=== PATIENT | female | born 1995 | race Caucasian/White ===

== ENCOUNTER 2016-10-26 06:08 | Emergency (ER) | payer OTHER ==
[~2016-10-26] VITALS: Ht 167.6 cm; Wt 104.5 kg
[2016-10-26 06:11] VITALS: BP 127/74; PULSE 78; RESP 16; O2SAT 98
[2016-10-26] MEDS ORDERED: 0.9% Sodium Chloride 1,000 ML IV ONE (07:06)
[2016-10-26] MEDS ORDERED: Promethazine Inj 25 MG in 0.9% Sodium Chloride-Pha MIX 100 ML IV ONE (07:10)
--- NOTE | 2016-10-26 07:26 | ED.REPORT ---
HPI-Abd Pain F Under 38 Date of Service October 26, 2016 ED Provider: Gorge Gipson DO The pt is a healthy 21 y/o female presenting to the ED complaining of nausea and vomiting onset 6 hours ago. She was drinking gin and a "Monster" last night which she suspects caused the vomiting. The other family members that went out to eat with her last night are feeling mildly nauseous with loose stools today. She also reports mild abdominal pain due to the vomiting. She has not taken any medicine to help. Nursing Notes Stated Complaint: VOMITING,SHAKY,FEELING NUMB,POSS FOOD POISONING Chief Complaint: Female Abdominal Pain Nursing Notes Reviewed: Yes Allergies: Uncoded Allergies: PENICILLIN (Allergy, Severe, ANAFLACTIC SHOCK AT 1 YRS OLD, 10/26/16) Scheduled PRN Ondansetron ODT (Zofran ODT) 4 Mg Tablet 4 MG PO Q4H PRN PRN For Nausea General Time Seen by MD: 06:40 Chief Complaint Vomiting moderate Hx Obtained From: Patient Arrived By: Walk-in Sudden in Onset?: Yes Onset Occurred: 5 - 8 hours ago Symptom Duration: Intermittent Location: : Diffuse Quality: Painful Severity: Current: Mild Severity: Maximum: Mild Recent Healthcare: No recent doctor visit, No recent hospitalization Past Medical History Past Medical History None reported Past Surgical History None reported Smoking History Unknown if Ever Smoker Social History Alcohol Use: "Social" Other Social History: Good social support Ambulatory Status Independent Review of Systems Constitutional: Denies: Fever GI: Reports: Abdominal pain, Nausea, Vomiting Complete sys rev & neg: except as marked. Physical Exam Initial Vital Signs Vital Signs (First) Date Time Temp Pulse Resp B/P Pulse Ox O2 Delivery O2 Flow Rate FiO2 10/26/16 06:11 36.4 78 16 127/74 98 Room Air Initial VS: Reviewed, Vital signs normal Head / Eyes: Atraumatic, Normocephalic, PERRL ENT: Mucous membranes moist, Conjunctiva normal, No scleral icterus Neck: Supple, Non-tender, Full range of motion Extremities: Vascular intact, Neuro intact, No swelling, No tenderness Skin: Warm, Dry, No cyanosis Neurologic: Alert, Oriented, Nonfocal Psychiatric: Mood/affect normal, Behavior normal, Normal thought content General/Constitutional: Awake, Alert Distress / Hydration: Positive: Distress mild Appearance / Presentation: Positive: Obese Respiratory / Chest: Breath sounds NL, Breath sounds = bilat, No respiratory distress, No rales, No rhonchi, No wheezing Cardiovascular: Heart rate NL, Regular rhythm, Heart sounds NL, Peripheral circulation NL Abdomen: Soft, Non-tender, McBurney's non-tender, No guarding, No rebound, BS normoactive, No distention, No hernia, No palpable mass Back: Inspection NL, Non-tender, No CVA tenderness Interpretation & Diagnostics Lab Results Interpretation Result Diagram: 10/26/16 0830 10/26/16 0830 Test 10/26/16 08:30 White Blood Count 6.6th/mm3 (3.8-10.1) Red Blood Count 4.83mil/mm3 (3.90-5.20) Hemoglobin 13.7g/dL (12.0-15.6) Hematocrit 40.4% (35.0-46.0) Mean Corpuscular Volume 83.6fL (81-100) Mean Corpuscular Hemoglobin 28.4pg (27.0-35.0) Mean Corpuscular Hemoglobin Concent 33.9% (32.0-37.0) Red Cell Distribution Width 12.8% (12.3-15.4) Platelet Count 331bil/L (150-400) Neutrophils (%) (Auto) 80.7% (40-74) Lymphocytes (%) (Auto) 15.6% (14-46) Monocytes (%) (Auto) 2.7% (4-12) Eosinophils (%) (Auto) 0.3% (0-5) Basophils (%) (Auto) 0.5% (0-3) Sodium Level 141mEq/L (134-144) Potassium Level 3.8mEq/L (3.5-5.2) Chloride Level 103mEq/L (97-108) Carbon Dioxide Level 20mmol/L (18-29) Blood Urea Nitrogen 10mg/dL (6-20) Creatinine 0.55mg/dL (0.57-1.00) Estimat Glomerular Filtration Rate 196mL/min (>59) Glucose Level 108mg/dL (60-99) Calcium Level 9.6mg/dL (8.5-10.1) Magnesium Level 1.9mg/dL (1.6-2.6) Total Bilirubin 0.4mg/dL (0.0-1.2) Aspartate Amino Transf (AST/SGOT) 22U/L (0-50) Alanine Aminotransferase (ALT/SGPT) 21U/L (0-32) Alkaline Phosphatase 60U/L (25-150) Total Protein 8.3g/dL (6.4-8.4) Albumin 4.8g/dL (3.4-5.0) Lipase 15U/L (13-60) Hold [place] Top Tube Received (Received) Re-Eval/Medical Decision Re-Evaluation/Progress : Time of Eval: 09:30 Re-Evaluation/Progress Note: Pt rechecked. Informed pt of plan for treatment. Pt understands and agrees with plan for treatment. F/U instructions and RTER warnings given. All questions addressed. Counseled Regarding: Diagnosis, Lab results, Need for follow-up, When/why to return to ED Discharge & Departure Primary Impression: Vomiting Vomiting type: unspecified Vomiting Intractability: unspecified Nausea presence: unspecified Qualified Code: R11.10 - Vomiting, unspecified Disposition: Home Discharge Condition All VS Reviewed: Yes Condition: Stable Additional Instructions: Use Zofran as needed. Follow-up with your regular doctor or return to the ER for persistent uncontrolled vomiting severe pain severe dehydration or other concerns. Referrals: NOPCP (PCP) Scribe Attestation Portions of this note were transcribed by Mariano Maldonado. I, Dr. Liana Guzman personally performed the history, physical exam and medical decision- making; I reviewed and confirmed the accuracy of the information in the transcribed note. Signed by: Francine Rodas, 10/26/16 and 0944. Gorge Gipson DO October 26, 2016 07:26 Mariano Melgar October 26, 2016 09:50 JESSICA MALDONADO October 26, 2016 09:56
[2016-10-26 08:49] LABS: BASOPHILS % (AUTO) 0.5 % (0-3); EOSINOPHILS % (AUTO) 0.3 % (0-5); MONOCYTES % (AUTO) 2.7 % (4-12); Mean Corpuscular Hemoglobin 28.4 pg (27.0-35.0); Mean Corpuscular Volume 83.6 fL (81-100); NEUTROPHILS % (AUTO) 80.7 % (40-74); Platelet Count 331 bil/L (150-400)
[2016-10-26 09:14] LABS: Magnesium 1.9 mg/dL (1.6-2.6)
[2016-10-26] MEDS ORDERED: ONDA4TAB9 PO (09:33)
[2016-10-26 10:06] VITALS: BP 126/64; PULSE 84; O2SAT 99
== END 2016-10-26 10:16 | disposition home or self-care (01) ==
LOC: SED 06:08
DX: R11.10 Vomiting, unspecified (principal); R19.7 Diarrhea, unspecified; R10.84 Generalized abdominal pain
CPT/HCPCS: 36415; 80053; 83690; 83735; 85025; 96361; 96365; 99284; J2550; J7030